=== PATIENT | female | born 1970 | race Two or more races ===

== ENCOUNTER 2025-01-21 20:21 | Emergency (ER) | payer MEDICAID ==
[~2025-01-21] VITALS: Ht 162.6 cm; Wt 160.0 kg
[2025-01-21 20:53] LABS: Basophils # (auto) 0 10 ^3/uL (0-0.2); Basophils % (auto) 0.3 % (0.0-2.0); Eosinophils # (auto) 0 10 ^3/uL (0-0.8); Hematocrit 43.9 % (36.0-46.0); Hemoglobin 14.7 g/dL (12.2-16.2); Lymphocytes # (auto) 0.3 10 ^3/uL (0.4-5.4); Lymphocytes % (auto) 3.4 % (10.0-50.0); Mean Corpuscular Hemoglobin 29.9 pg (28.0-32.0); Mean Corpuscular Hgb Conc. 33.6 g/dL (32.0-36.0); Mean Corpuscular Volume 89.1 fL (80.0-100.0); Monocytes # (auto) 0.2 10 ^3/uL (0-1.3); Monocytes % (auto) 2.4 % (0.0-12.0); Neutrophils # (auto) 8.2 10 ^3/uL (1.6-8.6); Neutrophils % (auto) 93.9 % (37.0-80.0); Nucleated Red Blood Cells % 0.1 %; Platelet Count (auto) 205 10^3/uL (140-450); Red Blood Cells 4.93 10^6/uL (4.0-5.20); Red Cell Distribution Width 13.1 % (11.8-14.3); White Blood Cell 8.7 10^3/uL (4.4-10.8)
[2025-01-21 20:58] LABS: Chloride 105 mmol/L (98-107); Sodium 140 mmol/L (136-145)
[2025-01-21 20:59] LABS: Anion Gap 13 (5-15); Carbon Dioxide 22 mmol/L (20-31)
[2025-01-21 21:00] LABS: Calcium 9.4 mg/dL (8.7-10.4)
--- NOTE | 2025-01-21 21:01 | ED.PDOC ---
History of Present Illness HPI Comments 54 y/o F is BIBA for c/o non-radiating, diffused abdominal pain, nausea, vomiting, and diarrhea, today. Per EMS report, patient is a [place] speaker and endorses on progressively worsening symptoms following onset, this morning. Patient repots on pain being "cramping" in quality and suspicion on possible spo iled food intake/Salmonella exposure, due to her daughter also displaying symptoms after both eating chicken-based [place] food, yesterday. Patient states on daughter symptoms subsiding since and having no history of similar symptoms in the past. Patient reports no significant medical or surgical history. She denies any hematemesis, hematochezia, constipation, urinary symptoms, fever, chills, or other associated symptoms at this time. En route, patient was also reported to have been given 4mg of Zofran, with moderate improvement. 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 Pertinent REDRYING MACHINE OPERATOR History Family History Family History: Unknown Social History Smoker: Non-Smoker Alcohol: Denies ETOH Use Drugs: Denies Drug Use Lives In: Home All Other Systems: Reviewed and Negative (Comprehensive systems review obtained and negative except for what is stated in the HPI.) Physical Exam General Appearance: No Apparent Distress, Normal HEENT: Normal ENT Inspection, Pharynx Normal, TMs Normal Neck: Full Range of Motion, Non-Tender, Normal, Normal Inspection Respiratory: Chest Non-Tender, Lungs Clear, No Accessory Muscle Use, No Respiratory Distress, Normal Breath Sounds Cardiovascular: No Edema, No JVD, No Murmur, No Gallop, Normal Peripheral Pulses, Regular Rate/Rhythm Breast Exam: Deferred Gastrointestinal: Diffuse (diffused tenderness ), No Organomegaly, No Pulsatile Mass, Normal Bowel Sounds, Soft, Tenderness (diffused tenderness ) Genitalia: Deferred Pelvic: Deferred Rectal: Deferred Extremities: No calf tenderness, Normal capillary refill, Normal inspection, Normal range of motion, Non-tender, No pedal edema Musculoskeletal : Apperance: Normal Neurologic: Alert, systems technologist II-XII nml as Tested, No Motor Deficits, Normal Affect, Normal Mood, No Sensory Deficits Cerebellar Function: Normal Reflexes: Normal Skin: Dry, Normal Color, Warm Lymphatic: No Adenopathy Was a procedure done? Was a procedure done?: No EKG EKG : Pulse Rate (adult): 81 [place]: Normal Cardiac Rhythm: NSR Block: None Hypertrophy: None ST: Normal Differential Dx Considerations may include: gastritis, gastroenteritis, viral syndrome, spoiled food, PUD, GERD, cholelithiasis, cholecystitis, among others X-Ray, Labs, Meds, VS Vital Signs Date Time Temp Pulse Resp B/P (MAP) Pulse Ox O2 Delivery O2 Flow Rate FiO2 01/21/25 21:07 99 16 95 Room Air* 0 21 01/21/25 21:06 98.6 99 16 130/74 (92) 95 98.6 01/21/25 21:01 81 01/21/25 20:25 81 01/21/25 20:21 98.8 87 28 119/74 (89) 100 98.8 Lab Test 01/21/25 20:41 Range/Units White Blood Count 8.7 4.4-10.8 10^3/uL Red Blood Count 4.93 4.0-5.20 10^6/uL Hemoglobin 14.7 12.2-16.2 g/dL Hematocrit 43.9 36.0-46.0 % Mean Corpuscular Volume 89.1 80.0-100.0 fL Mean Corpuscular Hemoglobin 29.9 28.0-32.0 pg Mean Corpuscular Hemoglobin Concent 33.6 32.0-36.0 g/dL Red Cell Distribution Width 13.1 11.8-14.3 % Platelet Count 205 140-450 10^3/uL Mean Platelet Volume 8.5 6.9-10.8 fL Neutrophils (%) (Auto) 93.9 H 37.0-80.0 % Lymphocytes (%) (Auto) 3.4 L 10.0-50.0 % Monocytes (%) (Auto) 2.4 0.0-12.0 % Eosinophils (%) (Auto) 0.0 0.0-7.0 % Basophils (%) (Auto) 0.3 0.0-2.0 % Neutrophils # (Auto) 8.2 1.6-8.6 10 ^3/uL Lymphocytes # (Auto) 0.3 L 0.4-5.4 10 ^3/uL Monocytes # (Auto) 0.2 0-1.3 10 ^3/uL Eosinophils # (Auto) 0 0-0.8 10 ^3/uL Basophils # (Auto) 0 0-0.2 10 ^3/uL Nucleated Red Blood Cells 0.1 % Sodium Level 140 136-145 mmol/L Potassium Level 3.0 L 3.5-5.1 mmol/L Chloride Level 105 98-107 mmol/L Carbon Dioxide Level 22 20-31 mmol/L Anion Gap 13 5-15 Blood Urea Nitrogen 17 9-23 mg/dL Creatinine 0.65 0.550-1.02 mg/dL Glomerular Filtration Rate Calc 105 >90 mL/min BUN/Creatinine Ratio 26.2 H 10.0-20.0 Serum Glucose 163 H 74-106 mg/dL Calcium Level 9.4 8.7-10.4 mg/dL Current Medications Medications (Trade) Dose Ordered Sig/Marshall Route Start Time Stop Time Status Last Admin Sodium Chloride 1,000 ml @ 1,000 mls/hr Q1H ONCE IV 01/21/25 20:30 01/21/25 21:29 DC 01/21/25 21:19 Ketorolac Tromethamine (Toradol Injection) 15 mg ONCE ONCE IV 01/21/25 20:30 01/21/25 20:31 DC 01/21/25 21:19 Famotidine (Pepcid Injection) 20 mg ONCE ONCE IV 01/21/25 20:30 01/21/25 20:31 DC 01/21/25 21:19 Time of 1ST Reevaluation: 20:55 Reevaluation 1ST: Unchanged Patient Education/Counseling: Diagnosis, Treatment Family Education/Counseling: No Family Present Additional Information -Reviewed patient's previous visit(s): n/a - The following tests were ordered, and results were reviewed by me: BMP, CBC - Additional information was gathered from interviewing the following independent Historian: EMS - I reviewed and agreed with the following test results read by other provider: - I discussed treatments and results with medical personnel and: patient Departure 1 Departure Time of Disposition: 21:46 (Patient likely has viral gastroenteritis. Patient is tolerating p.o. and feeling well. We will discharge patient home with outpatient follow up) Impression: Primary Impression: Viral gastroenteritis Disposition: HOME / SELF CARE / HOMELESS Condition: Stable Additional Instructions: You likely have gastroenteritis. It is important to stay well hydrated and well rested. This usually resolves within 1 week. If your symptoms worsen or you have any other concerns please return to the ER. Discharged With: Self Critical Care Note Critical Care Time?: No Stability Stability form required: No Heart Score Heart Score: Heart Score Response (Comments) Value History N/A 0 EKG N/A 0 Age N/A 0 Risk Factors N/A 0 Troponin N/A 0 Total 0 I personally scribed for CHELSEA FERRO MD ([email or web address]) on 01/21/25 at 21:01. Electronically submitted by Robel Chang ([email or web address]). CHELSEA FERRO MD Jan 21, 2025 21:01
[2025-01-21 21:04] LABS: BUN/Creatinine Ratio 26.2 (10.0-20.0); Blood Urea Nitrogen 17 mg/dL (9-23)
[2025-01-21 21:06] VITALS: BP 130/74; TEMP 98.6
[2025-01-21 21:07] VITALS: PULSE 99; RESP 16; O2SAT 95
[2025-01-21 21:08] LABS: Glucose 163 mg/dL (74-106)
[2025-01-21] MEDS: KETOROLAC TROMETH 30 MG/ML 1ML VIAL IV ONE (21:19)
[2025-01-21] MEDS: FAMOTIDINE (10MG/ML) 2ML VL IV ONE (21:19)
[2025-01-21] MEDS: SODIUM CHLORIDE 0.9% 1,000 ML IV ONE (21:19)
[2025-01-21 22:23] VITALS: PULSE 78; RESP 20; O2SAT 96
--- NOTE | 2025-01-22 10:19 | ECG ---
[facility] Test Date: 2025-01-21 Test Time: 20:25:44 Pat Name: AMBER TONEY Department: ED Room: Gender: F Geriatric Physician: VICK : [id number] Requested By: CHELSEA FERRO Order Number: [id number] Reading MD: Measurements Intervals Fisher Rate: 81 P: 41 MI: 174 QRS: 20 QRSD: 99 T: 2 QT: 393 QTc: 457 Interpretive Statements Sinus rhythm Borderline T abnormalities, anterior leads Please click the below link to view image of tracing.
== END 2025-01-21 22:22 | disposition home or self-care (01) ==
LOC: EDBD 20:21 → ER 20:21
DX: A08.4 Viral intestinal infection, unspecified (principal)
CPT/HCPCS: 36415; 80048; 85025; 93005; 96361; 96374; 96375; 99284; J1885; J3490; J7030